=== PATIENT | male | born 1955 | race Caucasian/White ===

== ENCOUNTER 2018-07-18 12:33 | Emergency (ER) | payer MEDICAID ==
[~2018-07-18] VITALS: Ht 167.6 cm; Wt 106.6 kg
[~2018-07-18 12:33] MED LIST: METF-372 PO
[2018-07-18 13:00] VITALS: BP 151/96
[2018-07-18 13:40] LABS: Basophils # (auto) 0 uL; Basophils % (auto) 0.5 % (0.0-2.0); Eosinophils # (auto) 0.2 uL; Hemoglobin 10.8 g/dL (13.5-17.5); Lymphocytes # (auto) 1.6 uL; Neutrophils # (auto) 5.4 uL; Platelet Count (auto) 264 10^3/uL (140-450)
[2018-07-18 13:42] LABS: Eosinophils % (auto) 2.6 % (0.0-7.0); Hematocrit 35.2 % (41.0-53.0); Mean Corpuscular Hemoglobin 20.5 pg (28.0-32.0); Mean Corpuscular Hgb Conc. 30.8 g/dL (32.0-36.0); Mean Corpuscular Volume 66.7 fL (80.0-100.0); Monocytes # (auto) 0.3 uL; Monocytes % (auto) 4.1 % (0.0-12.0); Neutrophils % (auto) 71.8 % (37.0-80.0); Red Blood Cells 5.27 10^6/uL (4.5-5.90); Red Cell Distribution Width 19.1 % (11.8-14.3); White Blood Cell 7.5 10^3/uL (4.4-10.8)
[2018-07-18 13:46] LABS: Albumin 3.8 g/dL (3.4-5.0); Anion Gap 5 (5-15); Blood Urea Nitrogen 18 mg/dL (7-18); Calcium 7.9 mg/dL (8.5-10.1); Carbon Dioxide 27 mmol/L (21-32); Chloride 104 mmol/L (98-107); Glucose 118 mg/dL (74-106); Potassium 3.6 mmol/L (3.5-5.1); Sodium 136 mmol/L (136-145)
[2018-07-18 13:52] LABS: Alanine Aminotransferase 27 U/L (16-61); Alkaline Phosphatase 73 U/L (45-117); Aspartate Aminotransferase 17 U/L (15-37); BUN/Creatinine Ratio 16.1; Bilirubin, Total 0.2 mg/dL (0.2-1.0); GFR African American 86 mL/min; GFR Non-African American 71 mL/min; Total Protein 7.4 g/dL (6.4-8.2)
[2018-07-18] MEDS ORDERED: ASPirin 81 mg TAB PO ONE (16:00)
== END 2018-07-18 18:04 | disposition left against medical advice (07) ==
LOC: ER 12:34
DX: R07.89 Other chest pain (principal); C73 Malignant neoplasm of thyroid gland; D50.9 Iron deficiency anemia, unspecified; E11.9 Type 2 diabetes mellitus without complications; F17.210 Nicotine dependence, cigarettes, uncomplicated
CPT/HCPCS: 36415; 71046; 80053; 83880; 84484; 85025; 93005

== ENCOUNTER 2018-12-16 16:55 | Emergency (ER) | payer MEDICAID ==
[~2018-12-16] VITALS: Ht 167.6 cm; Wt 103.4 kg
[2018-12-16 17:34] VITALS: BP 161/78
== END 2018-12-16 17:54 | disposition home or self-care (01) ==
LOC: ER 16:59
DX: H10.32 Unspecified acute conjunctivitis, left eye (principal); F17.210 Nicotine dependence, cigarettes, uncomplicated; E11.9 Type 2 diabetes mellitus without complications

== ENCOUNTER 2020-07-28 11:00 | Outpatient (CLI) | payer MEDICAID ==
[~2020-07-28] VITALS: Ht 175.3 cm; Wt 105.2 kg
[2020-07-28] MEDS ORDERED: AMLO-489 PO (11:53)
[2020-07-28] MEDS ORDERED: LISI40TA11 PO (11:53)
[2020-07-28] MEDS ORDERED: ASPI-264 PO (11:55)
[2020-07-28] MEDS ORDERED: LEVO200T7 PO (11:55)
[2020-07-28] MEDS ORDERED: CLOP75TA28 PO (11:55)
[2020-07-28] MEDS ORDERED: ASPI300S PR (11:55)
[2020-07-28] MEDS ORDERED: CHOL20007 PO (11:55)
== END 2020-07-28 11:28 | disposition home or self-care (01) ==
LOC: LAB 11:00 → EDSTATUS 08-01 13:49
PROVIDERS: ATTEND Internal Medicine
DX: Z01.818 Encounter for other preprocedural examination (principal); E66.01 Morbid (severe) obesity due to excess calories; Z68.34 Body mass index [BMI] 34.0-34.9, adult; Z20.822 Contact with and (suspected) exposure to COVID-19; Z98.890 Other specified postprocedural states; Z79.899 Other long term (current) drug therapy; Z85.118 Personal history of other malignant neoplasm of bronchus and lung

== ENCOUNTER 2024-03-05 03:43 | Inpatient (IN) | payer OTHER, MEDICAID ==
[~2024-03-05] VITALS: Ht 175.3 cm; Wt 101.0 kg
[2024-03-05] VITALS (14 sets, daily range): BP systolic 106–138; BP diastolic 58–77; PULSE 70–86; RESP 15–18; TEMP 97.6–99.2; O2SAT 94–98
[~2024-03-05 03:43] MED LIST changes: +AMLO1TAB22 PO; +CHOL20007 PO; +CLOP75TA28 PO; +LEVO200T7 PO; +LISI40TA16 PO; -METF-372 PO; +OYST500T28 PO
[2024-03-05] MEDS: MORPHINE SULFATE 4 MG/ML SYR/VIAL IV ONE (04:09)
[2024-03-05] MEDS: ONDANSETRON HCL 4 MG/2 ML VIAL IV ONE (04:09)
[2024-03-05] MEDS: ONDANSETRON HCL 4 MG/2 ML VIAL ONE (04:17)
[2024-03-05] MEDS: MORPHINE SULFATE 4 MG/ML SYR/VIAL ONE (04:18)
[2024-03-05] MEDS: MIDAZOLAM HCL 2MG/2ML 2ml VIAL (1mg/ml) ONE (04:23)
[2024-03-05] MEDS: HEPARIN SODIUM (PORCINE) 5000 UNITS/ML 1ML VIAL ONE (04:23)
[2024-03-05] MEDS: fentaNYL CITRATE 100 MCG/2 ML VL ONE (04:23)
[2024-03-05] MEDS: ANGIOMAX 250 MG VIAL IV ONE (04:23)
[2024-03-05] MEDS: LIDOCAINE 2%HCL (LOCAL ANESTH.) INJ 20ML MDV ONE (04:23)
[2024-03-05] MEDS: VERAPAMIL 2.5MG/ML INJ 2ML VIAL IV ONE (04:23)
[2024-03-05] MEDS: SODIUM CHL 0.9% 50 ML ONE (04:24)
[2024-03-05 04:27] LABS: Basophils # (auto) 0 10 ^3/uL (0-0.2); Eosinophils # (auto) 0 10 ^3/uL (0-0.8); Hemoglobin 10.9 g/dL (13.5-17.5); Mean Corpuscular Hgb Conc. 30.4 g/dL (32.0-36.0); Monocytes # (auto) 0.2 10 ^3/uL (0-1.3); Monocytes % (auto) 1.8 % (0.0-12.0)
[2024-03-05 04:29] LABS: Basophils % (auto) 0.3 % (0.0-2.0); Eosinophils % (auto) 0.1 % (0.0-7.0); Hematocrit 35.9 % (41.0-53.0); Lymphocytes # (auto) 0.6 10 ^3/uL (0.4-5.4); Lymphocytes % (auto) 4.7 % (10.0-50.0); Mean Corpuscular Hemoglobin 20.3 pg (28.0-32.0); Mean Corpuscular Volume 66.9 fL (80.0-100.0); Neutrophils # (auto) 11.3 10 ^3/uL (1.6-8.6); Neutrophils % (auto) 93.1 % (37.0-80.0); Nucleated Red Blood Cells % 0.1 %; Platelet Count (auto) 269 10^3/uL (140-450); Red Blood Cells 5.36 10^6/uL (4.5-5.90); White Blood Cell 12.1 10^3/uL (4.4-10.8)
[2024-03-05 04:32] LABS: Red Cell Distribution Width 20.2 % (11.8-14.3)
[2024-03-05 04:41] LABS: Alanine Aminotransferase 16 U/L (7-40); Albumin 4.6 g/dL (3.2-4.8); Alkaline Phosphatase 79 U/L (46-116); Anion Gap 13 (5-15); Aspartate Aminotransferase 10 U/L (13-40); BUN/Creatinine Ratio 18.7 (10.0-20.0); Blood Urea Nitrogen 14 mg/dL (9-23); Calcium 8.5 mg/dL (8.7-10.4); Carbon Dioxide 18 mmol/L (20-31); Chloride 109 mmol/L (98-107); Glucose 227 mg/dL (74-106); INR 1.04 (0.9-1.15); Magnesium 2.1 mg/dL (1.6-2.6); Partial Thromboplastin Time 23.6 SEC (24.5-34.5); Potassium 3.5 mmol/L (3.5-5.1); Sodium 140 mmol/L (136-145)
[2024-03-05 04:42] LABS: Bilirubin, Total 0.2 mg/dL (0.2-1.0); Total Protein 7.2 g/dL (5.7-8.2)
[2024-03-05 04:46] LABS: Lactic Acid w/Reflex 4.2 mmol/L (0.4-2.0)
[2024-03-05] MEDS: ATROPINE SULF 1 MG/10ml SYR ONE (05:05)
[2024-03-05 05:17] LABS: Anisocytosis Slight; Hypochromia Moderate; Platelet Estimate Adequate
[2024-03-05 05:18] LABS: Ovalocytes FEW
[2024-03-05] MEDS: IODIXANOL 320MG/ML 100ML BTL IV ONE (05:43)
[2024-03-05] MEDS: CLOPIDOGREL BISULFATE 75 MG TAB ONE (05:43)
[2024-03-05] MEDS ORDERED: MORPHINE SULFATE INJ 2 MG/ml SYRG IV PRN (05:45)
[2024-03-05] MEDS ORDERED: NITROGLYCERIN 0.4 MG SL TAB SL PRN (05:45)
[2024-03-05] MEDS: LEVOTHYROXINE SODIUM 25 MCG TAB PO SCH (09:16)
[2024-03-05] MEDS: CLOPIDOGREL BISULFATE 75 MG TAB PO SCH (09:17)
[2024-03-05] MEDS: LISINOPRIL 5 MG TAB PO SCH (09:18)
[2024-03-05] MEDS: ATORVASTATIN 20 MG TAB PO SCH (09:18)
[2024-03-05] MEDS: ASPirin 81 mg TAB PO SCH (09:19)
[2024-03-05] MEDS: CARVEDILOL 3.125 MG TAB PO SCH (09:19)
[2024-03-05] MEDS: MAGNESIUM SULFATE 1GM/100ML 100 ML IV SCH (10:58)
[2024-03-05] MEDS: ONDANSETRON HCL 4 MG/2 ML VIAL IV PRN (14:29)
[2024-03-05 17:32] LABS: Urine Bacteria None Seen /hpf (None Seen)
[2024-03-05 17:47] LABS: Urine Blood Negative /uL (Negative); Urine Clarity Clear (Clear); Urine Color Light-Yellow (Yellow); Urine Mucus FEW (None Seen); Urine Protein, UAD 2+ (Negative); Urine Specific Gravity 1.035 (1.001-1.035); Urine Urobilinogen Normal (Negative); Urine WBC 1 /hpf (0 - 3); Urine pH 5.5 (5.0-9.0)
[2024-03-05] MEDS: ACETAMINOPHEN 325 MG TAB PO PRN (18:41)
[2024-03-05 18:49] LABS: Alanine Aminotransferase 74 U/L (7-40); Albumin 4.1 g/dL (3.2-4.8); Alkaline Phosphatase 74 U/L (46-116); Anion Gap 11 (5-15); Aspartate Aminotransferase 383 U/L (13-40); BUN/Creatinine Ratio 19.2 (10.0-20.0); Bilirubin, Total 0.3 mg/dL (0.2-1.0); Blood Urea Nitrogen 15 mg/dL (9-23); Calcium 8.4 mg/dL (8.7-10.4); Carbon Dioxide 22 mmol/L (20-31); Chloride 107 mmol/L (98-107); Glucose 142 mg/dL (74-106); Magnesium 2.4 mg/dL (1.6-2.6); Phosphorus 4.1 mg/dL (2.4-5.1); Potassium 3.9 mmol/L (3.5-5.1); Sodium 140 mmol/L (136-145); Total Protein 6.3 g/dL (5.7-8.2)
[2024-03-06] VITALS (8 sets, daily range): BP systolic 107–116; BP diastolic 48–69; PULSE 64–78; RESP 16–19; TEMP 97.6–98.3; O2SAT 95–98
[2024-03-06 10:30] LABS: Basophils # (auto) 0 10 ^3/uL (0-0.2); Eosinophils # (auto) 0.1 10 ^3/uL (0-0.8); Eosinophils % (auto) 1.2 % (0.0-7.0); Hemoglobin 11.2 g/dL (13.5-17.5); Lymphocytes # (auto) 1.2 10 ^3/uL (0.4-5.4); Platelet Count (auto) 263 10^3/uL (140-450)
[2024-03-06 10:34] LABS: Basophils % (auto) 0.3 % (0.0-2.0); Hematocrit 35.3 % (41.0-53.0); Lymphocytes % (auto) 12.4 % (10.0-50.0); Mean Corpuscular Hemoglobin 20.7 pg (28.0-32.0); Mean Corpuscular Hgb Conc. 31.7 g/dL (32.0-36.0); Mean Corpuscular Volume 65.3 fL (80.0-100.0); Monocytes # (auto) 0.5 10 ^3/uL (0-1.3); Monocytes % (auto) 5.3 % (0.0-12.0); Neutrophils # (auto) 7.8 10 ^3/uL (1.6-8.6); Neutrophils % (auto) 80.8 % (37.0-80.0); Red Cell Distribution Width 20.1 % (11.8-14.3); White Blood Cell 9.7 10^3/uL (4.4-10.8)
[2024-03-06 10:40] LABS: Chloride 106 mmol/L (98-107); Potassium 3.9 mmol/L (3.5-5.1); Sodium 140 mmol/L (136-145)
[2024-03-06 10:41] LABS: Anion Gap 7 (5-15); Carbon Dioxide 27 mmol/L (20-31)
[2024-03-06 10:42] LABS: Calcium 8.7 mg/dL (8.7-10.4)
[2024-03-06 10:46] LABS: Glucose 155 mg/dL (74-106)
[2024-03-06 10:47] LABS: BUN/Creatinine Ratio 15.7 (10.0-20.0); Blood Urea Nitrogen 13 mg/dL (9-23); Magnesium 2.1 mg/dL (1.6-2.6)
[2024-03-06] MEDS: AMIODARONE HCL 200 MG TAB PO ONE (12:00)
[2024-03-06] MEDS: AMIODARONE HCL 200 MG TAB PO SCH (21:43)
[2024-03-06] MEDS: TEMAZEPAM 15 MG CAP PO ONE (22:09)
[2024-03-07 08:00] VITALS: PULSE 64; PULSE 67; RESP 20; O2SAT 95
[2024-03-07 09:32] VITALS: BP 135/76; PULSE 67; RESP 20; TEMP 97.6; O2SAT 95
[2024-03-07 10:37] LABS: Alanine Aminotransferase 41 U/L (7-40); Albumin 3.8 g/dL (3.2-4.8); Alkaline Phosphatase 68 U/L (46-116); Anion Gap 5 (5-15); Aspartate Aminotransferase 66 U/L (13-40); BUN/Creatinine Ratio 17.9 (10.0-20.0); Blood Urea Nitrogen 15 mg/dL (9-23); Calcium 8.4 mg/dL (8.7-10.4); Carbon Dioxide 28 mmol/L (20-31); Chloride 107 mmol/L (98-107); Glucose 198 mg/dL (74-106); Potassium 3.8 mmol/L (3.5-5.1); Sodium 140 mmol/L (136-145)
[2024-03-07 10:39] LABS: Bilirubin, Total 0.3 mg/dL (0.2-1.0); Total Protein 5.9 g/dL (5.7-8.2)
[2024-03-07] MEDS ORDERED: ATOR-507 PO (13:13)
[2024-03-07] MEDS ORDERED: CARV-214 PO (13:13)
[2024-03-07] MEDS ORDERED: NITR0.4S29 SL (13:13)
[2024-03-07] MEDS ORDERED: ASPI-325 PO (13:13)
[2024-03-07] MEDS ORDERED: AMIO200T13 PO (13:13)
[2024-03-07] MEDS ORDERED: CLOP75TA70 PO (13:13)
[2024-03-07] MEDS ORDERED: LISI-275 PO (13:13)
[2024-03-07 13:29] VITALS: BP 127/64; PULSE 71; RESP 20; TEMP 97.9; O2SAT 98
[2024-03-07 14:35] VITALS: BP 127/64; PULSE 71; RESP 20; TEMP 97.9; O2SAT 98
== END 2024-03-07 16:03 | disposition home or self-care (01) | DRG 321 ==
LOC: ER 03:43 → EDBD 03:43 → TELE 05:47 → TELE-WESTW 07:01
PROVIDERS: ADMIT Student in an Organized Health Care Education/Training Program; ATTEND Student in an Organized Health Care Education/Training Program
PROC: 0270346 Dilation of Coronary Artery, One Artery, Bifurcation, with Drug-eluting Intraluminal Device, Percutaneous Approach (ICD-10-PCS; principal; 2024-03-05)
PROC: 02703ZZ Dilation of Coronary Artery, One Artery, Percutaneous Approach (ICD-10-PCS; 2024-03-05)
PROC: 4A023N7 Measurement of Cardiac Sampling and Pressure, Left Heart, Percutaneous Approach (ICD-10-PCS; 2024-03-05)
PROC: B211YZZ Fluoroscopy of Multiple Coronary Arteries using Other Contrast (ICD-10-PCS; 2024-03-05)
PROC: B215YZZ Fluoroscopy of Left Heart using Other Contrast (ICD-10-PCS; 2024-03-05)
PROC: 5A09357 Assistance with Respiratory Ventilation, Less than 24 Consecutive Hours, Continuous Positive Airway Pressure (ICD-10-PCS; 2024-03-05)
DX: I21.19 ST elevation (STEMI) myocardial infarction involving other coronary artery of inferior wall (principal); J81.0 Acute pulmonary edema; E87.20 Acidosis, unspecified; I47.20 Ventricular tachycardia, unspecified; D72.829 Elevated white blood cell count, unspecified; I25.10 Atherosclerotic heart disease of native coronary artery without angina pectoris; I10 Essential (primary) hypertension; F17.210 Nicotine dependence, cigarettes, uncomplicated; D50.9 Iron deficiency anemia, unspecified; R74.01 Elevation of levels of liver transaminase levels; E03.9 Hypothyroidism, unspecified; E78.5 Hyperlipidemia, unspecified; E11.51 Type 2 diabetes mellitus with diabetic peripheral angiopathy without gangrene; E66.01 Morbid (severe) obesity due to excess calories; Z95.5 Presence of coronary angioplasty implant and graft; Z85.850 Personal history of malignant neoplasm of thyroid; Z83.3 Family history of diabetes mellitus; Z82.49 Family history of ischemic heart disease and other diseases of the circulatory system; Z82.3 Family history of stroke; Z68.32 Body mass index [BMI] 32.0-32.9, adult
CPT/HCPCS: 36415; 71045; 80048; 80053; 81001; 83605; 83735; 83880; 84100; 84443; 84484; 85025; 85379; 85610; 85730; 86850; 86900; 86901; 87081; 92921; 92941; 93005; 93306; 93458; 94660; 99152; 99291; C1887; G0378; J2250; J2405; Q9967

== ENCOUNTER 2024-03-20 03:53 | Emergency (ER) | payer OTHER, MEDICAID ==
[~2024-03-20] VITALS: Ht 162.6 cm; Wt 99.5 kg
[~2024-03-20 03:53] MED LIST changes: +AMIO200T13 PO; -AMLO1TAB22 PO; +ASPI-325 PO; +ATOR-507 PO; +CARV-214 PO; +CLOP75TA70 PO; +LISI-275 PO; -LISI40TA16 PO; +NITR0.4S29 SL
[2024-03-20 04:24] LABS: Basophils # (auto) 0 10 ^3/uL (0-0.2); Basophils % (auto) 0.4 % (0.0-2.0); Eosinophils # (auto) 0.2 10 ^3/uL (0-0.8); Eosinophils % (auto) 1.9 % (0.0-7.0); Hematocrit 33.2 % (41.0-53.0); Hemoglobin 10.4 g/dL (13.5-17.5); Lymphocytes # (auto) 1.6 10 ^3/uL (0.4-5.4); Lymphocytes % (auto) 17.8 % (10.0-50.0); Mean Corpuscular Hemoglobin 20.4 pg (28.0-32.0); Mean Corpuscular Hgb Conc. 31.5 g/dL (32.0-36.0); Mean Corpuscular Volume 64.9 fL (80.0-100.0); Monocytes # (auto) 0.8 10 ^3/uL (0-1.3); Monocytes % (auto) 9.5 % (0.0-12.0); Neutrophils # (auto) 6.2 10 ^3/uL (1.6-8.6); Neutrophils % (auto) 70.4 % (37.0-80.0); Platelet Count (auto) 285 10^3/uL (140-450); Red Blood Cells 5.12 10^6/uL (4.5-5.90); White Blood Cell 8.8 10^3/uL (4.4-10.8)
[2024-03-20 04:25] LABS: Red Cell Distribution Width 20.3 % (11.8-14.3)
[2024-03-20 04:31] LABS: Chloride 108 mmol/L (98-107); Sodium 140 mmol/L (136-145)
[2024-03-20 04:32] LABS: Anion Gap 7 (5-15); Calcium 8.5 mg/dL (8.7-10.4); Carbon Dioxide 25 mmol/L (20-31)
[2024-03-20 04:37] LABS: BUN/Creatinine Ratio 15.5 (10.0-20.0); Blood Urea Nitrogen 13 mg/dL (9-23); Glucose 116 mg/dL (74-106)
[2024-03-20 05:42] LABS: Urine Bacteria None Seen /hpf (None Seen)
[2024-03-20 06:00] LABS: Urine Blood Negative /uL (Negative); Urine Clarity Clear (Clear); Urine Color Light-Yellow (Yellow); Urine Protein, UAD 1+ (Negative); Urine Specific Gravity 1.017 (1.001-1.035); Urine Urobilinogen Normal (Negative); Urine WBC 1 /hpf (0 - 3)
[2024-03-20] MEDS: FUROSEMIDE 20 MG/2 ML VIAL ONE (06:48)
[2024-03-20] MEDS: FUROSEMIDE 20 MG/2 ML VIAL IV ONE (06:49)
[2024-03-20 07:30] VITALS: PULSE 51; RESP 15; O2SAT 97
[2024-03-20 09:38] VITALS: BP 150/81; PULSE 49; RESP 16; TEMP 98.4; O2SAT 98
== END 2024-03-20 06:26 | disposition short-term general hospital (02) ==
LOC: ER 03:53
DX: I11.0 Hypertensive heart disease with heart failure (principal); I50.9 Heart failure, unspecified; E11.9 Type 2 diabetes mellitus without complications; E78.5 Hyperlipidemia, unspecified; F17.210 Nicotine dependence, cigarettes, uncomplicated; Z79.82 Long term (current) use of aspirin; Z79.899 Other long term (current) drug therapy; Z85.850 Personal history of malignant neoplasm of thyroid; Z95.5 Presence of coronary angioplasty implant and graft
CPT/HCPCS: 36415; 71046; 80048; 81001; 83880; 84484; 85025; 93005; 96374; 99285; J1940

== ENCOUNTER 2024-06-30 06:54 | Inpatient (IN) | payer OTHER, MEDICAID ==
[~2024-06-30] VITALS: Ht 177.8 cm; Wt 102.8 kg
[2024-06-30] VITALS (8 sets, daily range): BP systolic 114–119; BP diastolic 60–63; PULSE 69–92; RESP 18–22; TEMP 98.6–99; O2SAT 92–100
--- NOTE | 2024-06-30 07:10 | ECG ---
[facility] Test Date: 2024-06-30 Test Time: 07:02:35 Pat Name: TAD AARON Department: ED Room: Gender: M Heat Treatment Technician: ANTHONY : 1955 Requested By: EMERGENCY EMERGENCY Order Number: [id number] Reading MD: Lester Tavera Measurements Intervals [place] Rate: 94 P: 62 DE: 176 QRS: 57 QRSD: 98 T: -66 QT: 380 QTc: 476 Interpretive Statements Sinus rhythm Inferior infarct, age indeterminate Lateral leads are also involved Baseline wander in lead(s) III,aVF,V1,V2,V3 Electronically Signed On 06-30-2024 8:57:18 PST by Lester Tavera Please click the below link to view image of tracing.
--- NOTE | 2024-06-30 07:31 | ED.PDOC ---
SOB-HPI HPI Comments 68Y M with PMHx DM, HTN, HLD, AND CAD presents to ED via EMS for chief complaint SOB x2days with fever, chills, and chest pain. Pt states chest pain is substernal and non-radiating. Pt denies h/o smoking. No other symptoms reported. Chief Complaint: Shortness of Breath Time Seen by MD: 07:19 Primary Care Provider: ISIDRO Reyes notes: Nurses Notes, Ramp Lead Notes, Medications, Allergies Information Source: Patient, Emergency Med Personnel Mode of Arrival: EMS Brought in by: EMS Severity: Mild Timing: Days Duration: Since onset Context: At Rest PE Risk Factors: None History of: None Prehospital treatment: 12 Lead EKG Modifying Factors: Nothing Associated Signs and Symptoms: Fever, Chest Pain, Other Quality: Other Radiation: No Radiation Location: Substernal Past Medical History PAST MEDICAL HISTORY: CAD, Cancer, DM, High Lipids, HTN, GA Surgical History: PTCA Family History Family History: Reviewed,noncontributory to illness Social History Smoker: Cigarettes, Less Than 1 Pack/Day Alcohol: Occasionally Drugs: Denies Drug Use Lives In: Home Constitutional: reports: chills, fever; denies: diaphoresis, fatigue, malaise, sweats, weakness, others EENTM: denies: blurred vision, double vision, ear bleeding, ear discharge, ear drainage, ear pain, ear ringing, eye pain, eye redness, hearing loss, mouth pain, mouth swelling, nasal discharge, nose bleeding, nose congestion, nose pain, photophobia, tearing, throat pain, throat swelling, voice changes, others Respiratory: reports: shortness of breath; denies: cough, hemoptysis, orthopnea, SOB at rest, SOB with excertion, stridor, wheezing, others Cardiovascular: reports: chest pain; denies: dizzy spells, diaphoresis, Dyspnea on exertion, edema, irregular heart beat, left arm pain, lightheadedness, palpitations, PND, syncope, others Gastrointestinal: denies: abdomen distended, abdominal pain, blood streaked bowels, constipated, diarrhea, dysphagia, difficulty swallowing, hematemesis, melena, nausea, poor appetite, poor fluid intake, rectal bleeding, rectal pain, vomiting, others Genitourinary: denies: burning, dysuria, flank pain, frequency, hematuria, incontinence, penile discharge, penile sore, pain, testicle pain, testicle swelling, urgency, others Neurological: denies: dizziness, fainting, headache, left sided numbness, left sided weakness, numbness, paresthesia, pre-existing deficit, right sided numbness, right sided weakness, seizure, speech problems, tingling, tremors, weakness, others Musculoskeletal: denies: back pain, gout, joint pain, joint swelling, muscle pain, muscle stiffness, neck pain, others Integumetry: denies: bruises, change in color, change in hair/nails, dryness, laceration, lesions, lumps, rash, wounds, others Allergic/Immunocompromised: denies: Difficulty Healing, Frequent Infections, Hives, Itching, others Hematologic/Lymphatic: denies: anemia, blood clots, easy bleeding, easy bruising, swollen glands, others Endocrine: denies: excessive hunger, excessive sweating, excessive thirst, excessive urination, flushing, intolerance to cold, intolerance to heat, unexplained weight gain, unexplained weight loss, others Psychiatric: denies: anxiety, bipolar disorder, depression, hopeless, panic d isorder, schizophrenia, sleepless, suicidal, others All Other Systems: Reviewed and Negative Physical Exam General Appearance: Moderate Distress, Normal HEENT: Normal ENT Inspection, Pharynx Normal, TMs Normal Neck: Full Range of Motion, Non-Tender, Normal, Normal Inspection Respiratory: Chest Non-Tender, Lungs Clear, No Accessory Muscle Use, No Respiratory Distress, Normal Breath Sounds Cardiovascular: No Edema, No JVD, No Murmur, No Gallop, Normal Peripheral Pulses, Regular Rate/Rhythm Breast Exam: Deferred Gastrointestinal: No Organomegaly, Non Tender, No Pulsatile Mass, Normal Bowel Sounds, Soft Genitalia: Deferred Pelvic: Deferred Rectal: Deferred Extremities: No calf tenderness, Normal capillary refill, Normal inspection, Normal range of motion, Non-tender, No pedal edema Musculoskeletal : Apperance: Normal Neurologic: Alert, box repairer II-XII nml as Tested, No Motor Deficits, Normal Affect, Normal Mood, No Sensory Deficits Cerebellar Function: NOT DONE Reflexes: NOT DONE Skin: Dry, Normal Color, Warm Peripheral Pulses: 3+ Radial (R), 3+ Radial (L) Lymphatic: No Adenopathy Was a procedure done? Was a procedure done?: No Differential Dx Differential Diagnosis: Anxiety, Asthma, Bronchitis, CHF, COPD, URI X-Ray, Labs, Meds, VS Vital Signs Date Time Temp Pulse Resp B/P (MAP) Pulse Ox O2 Delivery O2 Flow Rate FiO2 06/30/24 08:38 99.4 06/30/24 07:45 92 22 96 Nasal Cannula* 4 36 06/30/24 07:40 92 22 96 Room Air 06/30/24 07:40 99.8 92 22 154/73 (100) 96 99.8 06/30/24 07:38 99.8 06/30/24 07:15 18 94 Nasal Cannula* 4 36 06/30/24 07:15 101.1 95 18 165/77 (106) 94 06/30/24 07:02 94 Lab Test 06/30/24 07:41 Range/Units White Blood Count Pending Red Blood Count Pending Hemoglobin Pending Hematocrit Pending Mean Corpuscular Volume Pending Mean Corpuscular Hemoglobin Pending Mean Corpuscular Hemoglobin Concent Pending Red Cell Distribution Width Pending Platelet Count Pending Mean Platelet Volume Pending Neutrophils (%) (Auto) Pending Lymphocytes (%) (Auto) Pending Monocytes (%) (Auto) Pending Basophils (%) (Auto) Pending Neutrophils # (Auto) Pending Lymphocytes # (Auto) Pending Monocytes # (Auto) Pending Sodium Level 139 136-145 mmol/L Potassium Level 3.2 L 3.5-5.1 mmol/L Chloride Level 105 98-107 mmol/L Carbon Dioxide Level 23 20-31 mmol/L Anion Gap 11 5-15 Blood Urea Nitrogen 17 9-23 mg/dL Creatinine 0.87 0.700-1.30 mg/dL Glomerular Filtration Rate Calc 95 >90 mL/min BUN/Creatinine Ratio 19.5 10.0-20.0 Serum Glucose 150 H 74-106 mg/dL Calcium Level 8.7 8.7-10.4 mg/dL Troponin I High Sensitivity 21 </=54 ng/L Current Medications Medications (Trade) Dose Ordered Sig/Breonna Route Start Time Stop Time Status Last Admin Acetaminophen (Tylenol Tablet) 650 mg ONCE ONCE PO 06/30/24 07:30 06/30/24 07:31 DC 06/30/24 07:[address] [address] Ph: [phone] DIAGNOSTIC IMAGING Diagnostic Imaging Report : [id number] Signed PATIENT: TAD AARON ACCT: [id number] UNIT: [id number] : 1955 LOC: ER ROOM / BED: / AGE / SEX: 68 / M ADM STATUS: REG ER SERVICE 2 ORDERING PHYSICIAN: MOLLY CONTRERAS MD PROCEDURE(s): CXRP - CHEST PORTABLE REASON: sob ORDER NUMBER(s): [id number], ACCESSION NUMBER(s): [id number] Procedure: XY CHEST PORTABLE 06/30/2024 07:50 AM Indication: sob Comparison: XY CHEST PORTABLE on DOS: 03/05/24 TECHNIQUE: XY CHEST PORTABLE FINDINGS: Medical devices: None. Cardiomediastinal: The heart is normal in size. Pulmonary vasculature is within normal limits. Atherosclerotic calcification of the aortic arch noted. Lungs: Reticular opacities are seen in the bilateral mid and lower lung zones. Approximately 5.5 cm centrally lucent oval peripherally dense lesion noted in the left midlung zone. The costophrenic angles are clear. No pneumothorax. Bones/soft tissues: No acute abnormality is noted. IMPRESSION: 1. Bilateral pulmonary opacities likely pneumonia with concern for cavitating pneumonia in the left midlung zone. Recommend further evaluation with chest CT scan with IV contrast. ATED BY: YULIYA MICHELLE MD DICTATED DATE/TIME: 06/30/24804 SIGNED BY: YULIYA MICHELLE MD SIGNED DATE/TIME: 06/30/24804 CC: Patient alert. Complaining of chest pain. Shortness a breath pain Placed on oxygen. Possible pneumonia. Chest x-ray does confirm pneumonia. Establish intravenous access. Was given azithromycin. EKG reviewed does show old changes. History of coronary artery disease. Explained to the patient. Continue cardiac monitoring. [facility] approved inpatient admission [id number]. Time of 1ST Reevaluation: 07:49 Reevaluation 1ST: Unchanged Patient Education/Counseling: Diagnosis, Treatment Family Education/Counseling: No Family Present Departure 1 Departure Time of Disposition: 09:05 Impression: Primary Impression: Acute respiratory distress Additional Impressions: Pneumonia Qualified Codes: J18.9 - Pneumonia, unspecified organism Chest pain of unknown etiology Disposition: ADMITTED INPATIENT Admit to: Med Surg Condition: Guarded Critical Care Note Critical Care Time?: Yes (45 min-critical care time only) Stability Stability form required: No Heart Score Heart Score: Heart Score Response (Comments) Value History Slightly Suspicious 0 EKG Normal 0 Age >65 2 Risk Factors >3 or Hx ASHD 2 Troponin Normal limit 0 Total 4 I personally scribed for MOLLY CONTRERAS MD ([email or web address]) on 06/30/24 at 07:31. Electronically submitted by Lucretia Griffin ([facility]). I personally scribed for MOLLY CONTRERAS MD ([email or web address]) on 06/30/24 at 08:13. Electronically submitted by Lucretia Griffin ([facility]). MOLLY CONTRERAS MD Jun 30, 2024 07:31
[2024-06-30] MEDS: ACETAMINOPHEN 325 MG TAB PO ONE (07:38)
--- NOTE | 2024-06-30 08:07 | DVH ---
Procedure: XY CHEST PORTABLE 06/30/2024 07:50 AM Indication: sob Comparison: XY CHEST PORTABLE on DOS: 03/05/24 TECHNIQUE: XY CHEST PORTABLE FINDINGS: Medical devices: None. Cardiomediastinal: The heart is normal in size. Pulmonary vasculature is within normal limits. Athero sclerotic calcification of the aortic arch noted. Lungs: Reticular opacities are seen in the bilateral mid and lower lung zones. Approximately 5.5 cm c entrally lucent oval peripherally dense lesion noted in the left midlung zone. The costophrenic angl es are clear. No pneumothorax. Bones/soft tissues: No acute abnormality is noted. IMPRESSION: 1. Bilateral pulmonary opacities likely pneumonia with concern for cavitating pneumonia in the left m idlung zone. Recommend further evaluation with chest CT scan with IV contrast.
[2024-06-30 09:02] LABS: Chloride 105 mmol/L (98-107); Sodium 139 mmol/L (136-145)
[2024-06-30 09:03] LABS: Anion Gap 11 (5-15); Carbon Dioxide 23 mmol/L (20-31)
[2024-06-30 09:08] LABS: BUN/Creatinine Ratio 19.5 (10.0-20.0); Blood Urea Nitrogen 17 mg/dL (9-23)
[2024-06-30 09:19] LABS: Calcium 8.7 mg/dL (8.7-10.4); Glucose 150 mg/dL (74-106); Potassium 3.2 mmol/L (3.5-5.1)
[2024-06-30 09:36] LABS: Urine Bacteria None Seen /hpf (None Seen)
[2024-06-30] MEDS: NITROGLYCERIN 0.4 MG SL TAB SL ONE (09:45)
[2024-06-30] MEDS: AZITHROMYCIN 500MG/ 250ML 250 ML IV ONE (09:45)
[2024-06-30 09:57] LABS: Urine Blood Negative /uL (Negative); Urine Clarity Clear (Clear); Urine Color Yellow (Yellow); Urine Hyaline Cast FEW /lpf (0 - 2); Urine Mucus FEW (None Seen); Urine Protein, UAD 2+ (Negative); Urine Specific Gravity 1.025 (1.001-1.035); Urine Squamous Epithelial Cell FEW /hpf (<5); Urine Urobilinogen Normal (Negative); Urine WBC 8 /HPF (0-3)
[2024-06-30 10:02] LABS: Basophils # (auto) 0.1 10 ^3/uL (0-0.2); Eosinophils # (auto) 0 10 ^3/uL (0-0.8); Monocytes # (auto) 0.8 10 ^3/uL (0-1.3)
[2024-06-30 10:04] LABS: Basophils % (auto) 0.4 % (0.0-2.0); Eosinophils % (auto) 0.1 % (0.0-7.0); Hematocrit 37.3 % (41.0-53.0); Hemoglobin 11.2 g/dL (13.5-17.5); Lymphocytes # (auto) 0.4 10 ^3/uL (0.4-5.4); Lymphocytes % (auto) 2.4 % (10.0-50.0); Mean Corpuscular Hemoglobin 18.7 pg (28.0-32.0); Mean Corpuscular Volume 62.4 fL (80.0-100.0); Monocytes % (auto) 4.6 % (0.0-12.0); Neutrophils # (auto) 15.9 10 ^3/uL (1.6-8.6); Neutrophils % (auto) 92.5 % (37.0-80.0); Platelet Count (auto) 289 10^3/uL (140-450); Red Blood Cells 5.98 10^6/uL (4.5-5.90); Red Cell Distribution Width 22.1 % (11.8-14.3); White Blood Cell 17.2 10^3/uL (4.4-10.8)
[2024-06-30] MEDS: PIPERACILLIN-TAZOB 3.375GM 100 ML IV ONE (10:11)
[2024-06-30 10:18] LABS: Anisocytosis Slight; Hypochromia Moderate; Ovalocytes MODERATE
[2024-06-30 10:19] LABS: Large Platelets FEW
[2024-06-30 10:20] LABS: Platelet Estimate Adequa
--- NOTE | 2024-06-30 11:10 | DVHHP2 ---
History of Present Illness Reason for Visit: SOB History of Present Illness Raudel Glynn is a 68-year-old male with past medical history of hypertension, hyperlipidemia, diabetes, COPD, CAD with PTCA to the RCA on 03/05/24 at [facility] who presents to the ED for shortness of breath, fever, chills, and chest pain x2 days. Patient reports that he has at home cleaning his house when he suddenly developed shortness of breath. He also reports that he is dependent on 4 L nasal cannula oxygen continuously. Patient also reports of bilateral ear pain c/o 12/09 constant pressure-like. Patient denies any recent sick contacts, denies abdominal pain, nausea, vomiting, diarrhea, weakness, weakness, and dizziness. Cardiovascular: CAD, HTN, hyperipidemia Pulmonary: COPD Endocrine: Diabetes Past Surgical History: Other (PTCA) Family History: None Smoke: No ALCOHOL: occassional Drugs: None Lives: with Family Domestic Violence: Neg Review of Systems Constitutional: Yes: Fever, Chills; No: Sweats, Weakness, Malaise, Other Eyes: No: Pain, Vision change, Conjunctivae inflammation, Eyelid inflammation, Other, Redness ENT: Ear pain; No: Ear discharge, Nose pain, Nose discharge, Nose congestion, Mouth pain, Mouth swelling, Throat pain, Throat swelling, Other Respiratory: Shortness of breath; No: Cough, Dry, SOB with excertion, Wheezing, Hemoptysis, Pleuritic Pain, Sputum, Wheezing, Other Cardiovascular: Chest Pain; No: Palpitations, Orthopnea, Paroxysmal Noc. Dyspnea, Edema, Lt Headedness, Other Gastrointestinal: No: Nausea, Vomiting, Abdominal Pain, Diarrhea, Constipation, Melena, Hematochezia, Other Genitourinary: No Dysuria, No Frequency, No Incontinence, No Hematuria, No Retention, No Other Musculoskeletal: No: other, neck pain, shoulder pain, arm pain, back pain, hand pain, leg pain, foot pain Skin: No: Rash, Lesions, Jaundice, Bruising, Other Neurological: No: Weakness, Numbness, Incoordination, Change in speech, Confusion, Seizures, Other Allergies: Coded Allergies: No Known Drug Allergy (Verified Allergy, Unknown, 09/21/20) Medications Current Medications Medications Dose Ordered Sig/Breonna Route Start Time Stop Time Status Last Admin Dose Admin Piperacillin Sod/ Tazobactam Sod 100 ml @ 25 mls/hr Q8HR IV 06/30/24 14:00 UNV Azithromycin 250 ml @ 125 mls/hr DAILY IV 07/01/24 10:00 UNV Diagnostic Test (Pha) 1 strip ACHS 06/30/24 11:30 UNV Insulin Human Regular ACHS SC 06/30/24 11:30 UNV Dextrose 50 ml UD PRN IV 06/30/24 11:15 UNV Morphine Sulfate 2 mg Q30MP PRN IV 06/30/24 11:15 UNV Exam Vital Signs Vital Signs Date Time Temp Pulse Resp B/P (MAP) Pulse Ox O2 Delivery O2 Flow Rate FiO2 06/30/24 09:36 99.0 74 18 114/60 (78) 99 99.0 06/30/24 07:45 Nasal Cannula* 4 36 General Appearance: Alert, Oriented X3, Cooperative, mild distress HEENT: Atraumatic, PERRLA, EOMI, Mucous membr. moist/pink Respiratory: Normal air movement Cardiovascular: Regular rate, Normal S1, Normal S2, No murmurs Abdominal: Normal bowel sounds, Soft, No tenderness, No hepatospenomegaly, No masses Extremities: No clubbing, No cyanosis, No edema, Normal pulses, No tenderness/swelling Skin: No rashes, No breakdown, No significant lesion Neuro: Normal gait, Normal speech, Strength at 5/5 X4 ext, Normal tone, Sensation intact Psych/Mental Status: Mental status NL, Mood NL Labs/Xrays Labs Test 06/30/24 09:12 06/30/24 08:32 06/30/24 07:41 Range/Units Troponin I High Sensitivity 18 </=54 ng/L Urine Color Yellow Yellow Urine Clarity Clear Clear Urine pH 6.0 5.0-9.0 Urine Specific [place] 1.025 1.001-1.035 Urine Protein 2+ H Negative Urine Ketones 1+ H Negative Urine Blood Negative Negative /uL Urine Nitrite Negative Negative Urine Bilirubin Negative Negative Urine Urobilinogen Normal Negative mg/dL Urine Leukocyte Esterase Trace Negative /uL Urine RBC <1 0 - 3 /hpf Urine Microscopic WBC 8 H 0-3 /HPF Urine Squamous Epithelial Cells Few <5 /hpf Urine Bacteria None seen None Seen /hpf Urine Hyaline Casts Few 0 - 2 /lpf Urine Mucus Few None Seen Urine Glucose Trace Normal mg/dL White Blood Count 17.2 H 4.4-10.8 10^3/uL Red Blood Count 5.98 H 4.5-5.90 10^6/uL Hemoglobin 11.2 L 13.5-17.5 g/dL Hematocrit 37.3 L 41.0-53.0 % Mean Corpuscular Volume 62.4 L 80.0-100.0 fL Mean Corpuscular Hemoglobin 18.7 L 28.0-32.0 pg Mean Corpuscular Hemoglobin Concent 30.0 L 32.0-36.0 g/dL Red Cell Distribution Width 22.1 H 11.8-14.3 % Platelet Count 289 140-450 10^3/uL Mean Platelet Volume 8.8 6.9-10.8 fL Neutrophils (%) (Auto) 92.5 H 37.0-80.0 % Lymphocytes (%) (Auto) 2.4 L 10.0-50.0 % Monocytes (%) (Auto) 4.6 0.0-12.0 % Eosinophils (%) (Auto) 0.1 0.0-7.0 % Basophils (%) (Auto) 0.4 0.0-2.0 % Neutrophils # (Auto) 15.9 H 1.6-8.6 10 ^3/uL Lymphocytes # (Auto) 0.4 0.4-5.4 10 ^3/uL Monocytes # (Auto) 0.8 0-1.3 10 ^3/uL Eosinophils # (Auto) 0 0-0.8 10 ^3/uL Basophils # (Auto) 0.1 0-0.2 10 ^3/uL Nucleated Red Blood Cells 0.0 % Platelet Estimate [place] Large Platelets Few Hypochromasia (manual) Moderate Anisocytosis (manual) Slight Microcytosis Moderate Ovalocytes Moderate Sodium Level 139 136-145 mmol/L Potassium Level 3.2 L 3.5-5.1 mmol/L Chloride Level 105 98-107 mmol/L Carbon Dioxide Level 23 20-31 mmol/L Anion Gap 11 5-15 Blood Urea Nitrogen 17 9-23 mg/dL Creatinine 0.87 0.700-1.30 mg/dL Glomerular Filtration Rate Calc 95 >90 mL/min BUN/Creatinine Ratio 19.5 10.0-20.0 Serum Glucose 150 H 74-106 mg/dL Calcium Level 8.7 8.7-10.4 mg/dL Procedure: XY CHEST PORTABLE 06/30/2024 07:50 AM Indication: sob Comparison: XY CHEST PORTABLE on DOS: 03/05/24 TECHNIQUE: XY CHEST PORTABLE FINDINGS: Medical devices: None. Cardiomediastinal: The heart is normal in size. Pulmonary vasculature is within normal limits. Atherosclerotic calcification of the aortic arch noted. Lungs: Reticular opacities are seen in the bilateral mid and lower lung zones. Approximately 5.5 cm centrally lucent oval peripherally dense lesion noted in the left midlung zone. The costophrenic angles are clear. No pneumothorax. Bones/soft tissues: No acute abnormality is noted. IMPRESSION: 1. Bilateral pulmonary opacities likely pneumonia with concern for cavitating pneumonia in the left midlung zone. Recommend further evaluation with chest CT scan with IV contrast. CTA CHEST INDICATION: r/o cavitary lesion TECHNIQUE: Multidetector CTA of the chest was performed of the chest with 100 cc of intravenous contrast. PULMONARY ANGIOGRAPHY PROTOCOL was utilized using a bolus-tracking technique centered on the main pulmonary artery. Axial, coronal and sagittal multiplanar and MIP reformats were performed. Radiation Dose Information: CT Dose: CTDI volume is 22 mGy. Dose-length product is 817 mGy*cm The dose indicators for CT are the volume Computed Tomography (CT) Dose Index (CTDIvol) and the Dose Length Product (DLP), and are measured in units of mGy and mGy-cm, respectively. These indicators are not patient dose, but values generated from the CT scanner acquisition factors. The report includes radiation exposure data for exposures received during this examination. Comparison: None Findings: Pulmonary artery: There is no evidence of a pulmonary arterial filling defect to suggest pulmonary embolism. Lungs/Pleura: There are multi focal patchy opacities in the right upper and bilateral lower lobes consistent with airspace disease. There are small patchy opacities with tree-in-bud nodularity in the right upper lobe. The findings likely relate to multifocal infectious process. There is no evidence of a cavitary lesion. There is no significant pleural effusion. There is no evidence of pneumothorax. Heart/Vascular Structures: Normal heart size. The thoracic aorta demonstrates normal caliber. There is no evidence of pericardial effusion. Lymph Nodes: There is no evidence of thoracic lymphadenopathy. Musculoskeletal: No acute osseous abnormality. Upper abdomen: There is a nonspecific 4.4 cm retrocardiac cystic structure along the right lateral margins of the lower esophagus. The visualized intra- abdominal structures appear within normal limits. IMPRESSION: 1. There is no evidence of a pulmonary arterial filling defect to suggest pulmonary embolism. 2. Multifocal patchy opacities in the bilateral lower and left upper lobes and to a lesser degree in the right upper lobe. Findings likely relate to multifocal infectious process. Clinical correlation is recommended. There is no significant pleural effusion. 3. Nonspecific 4.4 cm retrocardiac cystic structure along the right lateral margins of the lower esophagus. Assessment/Plan Assessment/Plan Assessment/Plan: Acute on chronic respiratory failure Leukocytosis likely due to UTI Lactic acidosis likely due to sepsis Oxygen dependent on 4 L nasal cannula at home Ketonuria Proteinuria Labs UA Nitro given in ED Aspirin given ED IV antibiotics-Zosyn + azithromycin Pain management Antipyretics RBC morphology Troponin negative x2 Chest x-ray EKG Mag level Magnesium IV CT chest Blood cultures IV fluids Respiratory treatments A.m. labs Supportive oxygen Cardiology consult Bilateral pulmonary opacities likely pneumonia with concern for cavitating pneumonia in the left midlung zone. CT angio chest Hypokalemia replete lytes Diabetes type 2 uncontrolled Hemoglobin A1c ISS and Accu-Cheks History of CAD with PTCA on the RCA on 03/05/2024 [facility] Monitor Chronic hypertension Continue home medications Chronic hyperlipidemia Continue home medications Chronic COPD P.r.n. 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 Procedure Category Date Status Time Ct Angio Chest CT 06/30/24 Logged Contrast 10:37 Lactic Acid W/ Reflex LAB 06/30/24 Logged Order 10:40 Blood Culture ALESSIA 06/30/24 Logged 10:40 Urine Bacterial ALESSIA 06/30/24 Logged Culture 10:41 Potassium Er Tablet PHA 06/30/24 Transmitted (Klor-Con Tablet) 11:15 Magnesium LAB 06/30/24 Transmitted 11:02 Magnesium Mendez PHA 06/30/24 Transmitted 11:15 Zosyn Extended PHA 06/30/24 Transmitted Infusion 14:00 Azithromycin 500mg/ PHA 07/01/24 Transmitted 250ml (Zithromax 50 10:00 Hemoglobin A1c LAB 06/30/24 Transmitted 11:02 Glucose Blood PHA 06/30/24 Transmitted (Accu-Chek Comfort 11:30 Mild Sliding Scale PHA 06/30/24 Transmitted 11:30 Dextrose 50% Syringe PHA 06/30/24 Transmitted 11:15 Admit ADMIT 06/30/24 Transmitted 11:02 Code Status CODE 06/30/24 Transmitted 11:02 Vital Signs KRYSTA 06/30/24 In Process 11:02 Central Sterilization Technician KRYSTA 06/30/24 In Process 11:02 Cardiac DIET 06/30/24 Transmitted Diet-2gna,Lofat,Lochol Lunch Morphine Sulfate PHA 06/30/24 Transmitted Injection 11:15 Acetaminophen Tablet PHA 06/30/24 Transmitted (Tylenol Tablet) 11:15 Complete Blood Count LAB 07/01/24 Verified 04:00 Comprehensive LAB 07/01/24 Verified Metabolic Panel 04:00 Ondansetron Hcl PHA 06/30/24 Transmitted (Zofran) 11:15 Electrocardigram EKG 07/01/24 Logged 04:00 Troponin-I Hs LAB 06/30/24 Transmitted 11:02 Cardiac KRYSTA 06/30/24 In Process Rehabilitation - Outpa Nitroglycerin PHA 06/30/24 Transmitted Sublingual (Ntrostat 11:15 Morphine Sulfate PHA 06/30/24 Transmitted Injection 11:15 Stat Ekg For Chest [facility] 06/30/24 In Process Pain 11:02 Notify Of Changes [facility] 06/30/24 In Process From Base 11:02 Needle Punch Operator For KRYSTA 06/30/24 In Process 24 Hours 11:02 Emergency Dysrhythmia [facility] 06/30/24 In Process Protocol 11:02 Rhythm Strips Once [facility] 06/30/24 In Process Every Shift 11:02 Oxygen By Nasal RT 06/30/24 Transmitted Cannula 11:02 * Cardiology Consult CONS 06/30/24 Transmitted 11:02 Date of Service: Jun 30, 2024 Billing Provider: GRACE BLAKE Common Visit Codes: [id number] INP/OBS CARE (HIGH) GRACE BLAKE Jun 30, 2024 11:10
[2024-06-30] MEDS ORDERED: NITROGLYCERIN 0.4 MG SL TAB SL PRN (11:15)
[2024-06-30] MEDS ORDERED: MORPHINE SULFATE 4 MG/ML SYR/VIAL IV PRN (11:15)
[2024-06-30] MEDS ORDERED: DEXTROSE (50%) 50ML SYRG IV PRN (11:15)
[2024-06-30] MEDS ORDERED: MORPHINE SULFATE INJ 2 MG/ml SYRG IV PRN (11:15)
[2024-06-30] MEDS: ACCU-CHEK COMFORT CURVE STRIP VI SCH (11:30)
[2024-06-30] MEDS: InsuLIN REG 1unit/0.01ml Soln (100units/ml) SC SCH (11:30)
[2024-06-30 11:49] LABS: Lactic Acid w/Reflex 3.1 mmol/L (0.4-2.0)
[2024-06-30] MEDS: IOHEXOL 350 MG/ML 100ML IJ ONE ×2 (12:14)
--- NOTE | 2024-06-30 12:18 | DVH ---
CTA CHEST INDICATION: r/o cavitary lesion TECHNIQUE: Multidetector CTA of the chest was performed of the chest with 100 cc of intravenous contr ast. PULMONARY ANGIOGRAPHY PROTOCOL was utilized using a bolus-tracking technique centered on the tavon n pulmonary artery. Axial, coronal and sagittal multiplanar and MIP reformats were performed. Radiation Dose Information: CT Dose: CTDI volume is 22 mGy. Dose-length product is 817 mGy*cm The dose indicators for CT are the volume Computed Tomography (CT) Dose Index (CTDIvol) and the Dose Length Product (DLP), and are measured in units of mGy and mGy-cm, respectively. These indicators are not patient dose, but values generated from the CT scanner acquisition factors. The report includes radiation exposure data for exposures received during this examination. Comparison: None Findings: Pulmonary artery: There is no evidence of a pulmonary arterial filling defect to suggest pulmonary e mbolism. Lungs/Pleura: There are multi focal patchy opacities in the right upper and bilateral lower lobes co nsistent with airspace disease. There are small patchy opacities with tree-in-bud nodularity in the r ight upper lobe. The findings likely relate to multifocal infectious process. There is no evidence of a cavitary lesion. There is no significant pleural effusion. There is no evidence of pneumothorax. Heart/Vascular Structures: Normal heart size. The thoracic aorta demonstrates normal caliber. There is no evidence of pericardial effusion. Lymph Nodes: There is no evidence of thoracic lymphadenopathy. Musculoskeletal: No acute osseous abnormality. Upper abdomen: There is a nonspecific 4.4 cm retrocardiac cystic structure along the right lateral m argins of the lower esophagus. The visualized intra-abdominal structures appear within normal limits . IMPRESSION: 1. There is no evidence of a pulmonary arterial filling defect to suggest pulmonary embolism. 2. Multifocal patchy opacities in the bilateral lower and left upper lobes and to a lesser degree in the right upper lobe. Findings likely relate to multifocal infectious process. Clinical correlation i s recommended. There is no significant pleural effusion. 3. Nonspecific 4.4 cm retrocardiac cystic structure along the right lateral margins of the lower eso phagus. HS:Y
[2024-06-30] MEDS ORDERED: IPRATROPIUM BROM 0.5 MG/2.5ML INH SOL NEB PRN (12:30)
[2024-06-30] MEDS ORDERED: ALBUTEROL SULF 2.5 MG/0.5ML(0.5%) NEB SOLN NEB PRN (12:30)
[2024-06-30] MEDS ORDERED: FURO20TA4 (12:42)
[2024-06-30] MEDS: POTASSIUM CHL 20 Meq TABLET PO ONE (13:23)
[2024-06-30] MEDS: ASPirin 325 MG TAB PO ONE (13:23)
[2024-06-30] MEDS: ACETAMINOPHEN 325 MG TAB PO PRN (13:24)
[2024-06-30] MEDS: ALBUTEROL SULF 2.5 MG/0.5ML(0.5%) NEB SOLN NEB SCH (13:59)
[2024-06-30] MEDS: IPRATROPIUM BROM 0.5 MG/2.5ML INH SOL NEB SCH (13:59)
[2024-06-30] MEDS: PIPERACILLIN-TAZOB 3.375GM 100 ML IV SCH (14:00)
--- NOTE | 2024-06-30 15:06 | DVHINCON2 ---
Date Seen: Jun 30, 2024 Referring Physician KORI Mejía Reason for Consultation Chest pain and CHF exacerbation History of Present Illness This is a pleasant [place]ian-speaking mostly 68-year-old man who presented to the emergency room via EMS with a chief complaint of shortness of breath for two days. The patient complains of progressive shortness of breath associated with fever, chills, myalgia, and a productive cough with yellow sputum. Denies chest pain, pleuritic chest pain, palpitations, dizziness, or syncopal events. He underwent a 12 lead electrocardiogram revealing a sinus rhythm with ST segment depression to inferolateral leads. These changes have improved compared to his last ECGs from his last visit on 03/2024. At that time, the patient was code STEMI undergoing cardiac catheterization and coronary angiogram with successful PTCA and stenting of the RCA including one NINOSKA on 03/05/2024. Reports compliance with DAPT, GDMT for CHF, and lipid lowering agent. The last saw his freezer assistant at [facility] past . Significant medical history includes severe coronary artery disease status post PTCA with unspecified stent placement 7 years ago and recent STEMI with successful PCI of the RCA x 1 NINOSKA, congestive heart failure with recovered LVEF post PTCA, nonsustained ventricular tachycardia on amiodarone therapy, peripheral vascular disease, hypertension, dyslipidemia, [id number] diabetes mellitus, thyroid cancer with Mets to lung and kidney and recent chemotherapy, chronic respiratory failure with O2 dependence, recent tobacco dependence, and obesity. Past Medical History Past medical history reviewed. No other significant than mentioned above. Past Surgical History PTCA to the RCA x1 NINOSKA, 03/05/2024 PTCA to unspecified vessel, seven years ago Family History: Diabetes mellitus G8 FATHER, Family History Family history reviewed. Social History Denies the use of illicit drugs or tobacco use. Admits to occasional alcohol use. Allergies: Coded Allergies: No Known Drug Allergy (Verified Allergy, Unknown, 09/21/20) Home Meds Active Scripts Atorvastatin Calcium (Lipitor) 40 Mg Tab, 1 TAB PO DAILY for 60 Days, #60 TAB 5 Refills Prov:DRE NAPIER MD 03/07/24 Nitroglycerin (NTROSTAT SUBLINGUAL) 0.4 Mg Sl, 0.4 MG SL Q5MINP PRN for 20 Days, #20 TAB Prov:DRE NAPIER MD 03/07/24 Lisinopril (Lisinopril) 5 Mg Tab, 5 MG PO DAILY for 60 Days, #60 TAB Prov:DRE NAPIER MD 03/07/24 Clopidogrel Bisulfate (CLOPIDOGREL) 75 Mg Tab, 75 MG PO DAILY for 60 Days, #60 TAB Prov:DRE NAPIER MD 03/07/24 Carvedilol (COREG) 3.125 Mg Tab, 3.125 MG PO DAILY for 60 Days, #60 TAB Prov:DRE NAPIER MD 03/07/24 Aspirin (Aspirin Low Dose) 81 Mg Tab, 81 MG PO DAILY for 60 Days, #60 TAB Prov:DRE NAPIER MD 03/07/24 Amiodarone HCl (Amiodarone HCl) 200 Mg Tab, 200 MG PO Q12HR for 60 Days, #120 TAB Prov:DRE NAPIER MD 03/07/24 Reported Medications Furosemide (Furosemide) 20 Mg Tab, 1 06/30/24 Oyster Shell Calcium (Calcium Oyster Shell) 500 Mg Tab, 500 MG PO DAILY, TAB 09/21/20 Clopidogrel Bisulfate (Plavix) 75 Mg Tab, 75 MG PO DAILY 07/28/20 Levothyroxine Sodium (Levothyroxine Sodium) 200 Mcg Tab, 200 MCG PO QAM 07/28/20 Cholecalciferol (VITAMIN D3) 2,000 Unit Tab, 5000 UNIT PO DAILY 07/28/20 Home Meds Home medications reviewed. Current Medications Current Medications Medications (Trade) Dose Ordered Sig/Breonna Route PRN Reason Start Time Stop Time Status Last Admin Piperacillin Sod/ Tazobactam Sod 100 ml @ 25 mls/hr Q8HR IV 06/30/24 14:00 Azithromycin 250 ml @ 125 mls/hr DAILY IV 07/01/24 10:00 Diagnostic Test (Pha) (Accu-Chek Comfort Curve T) 1 strip ACHS 06/30/24 11:30 06/30/24 11:30 Insulin Human Regular (InsuLIN R) ACHS SC 06/30/24 11:30 Dextrose 50 ml UD PRN IV Blood Sugar LESS THAN 60 06/30/24 11:15 Morphine Sulfate 2 mg Q30MP PRN IV FOR CHEST PAIN 06/30/24 11:15 06/30/24 11:25 DC Acetaminophen (Tylenol Tablet) 650 mg Q6HP PRN PO MILD PAIN (1-3 PAIN SCALE) 06/30/24 11:15 06/30/24 13:24 Ondansetron HCl (Zofran) 4 mg Q4HP PRN IV NAUSEA / VOMITING 06/30/24 11:15 Nitroglycerin (Ntrostat Sublingual) 0.4 mg Q5MINP PRN SL FOR CHEST PAIN 06/30/24 11:15 Morphine Sulfate 2 mg Q30M PRN IV FOR CHEST PAIN 06/30/24 11:15 Sodium Chloride 1,000 ml @ 100 mls/hr Q10H IV 06/30/24 12:15 Albuterol (Ventolin Medneb) 2.5 mg Q4HWA NEB 06/30/24 14:00 06/30/24 13:59 Albuterol (Ventolin Medneb) 2.5 mg Q2HPRN PRN NEB SHORTNESS OF BREATH 06/30/24 12:30 Ipratropium [place] (Atrovent Medneb) 0.5 mg Q4HWA NEB 06/30/24 14:00 06/30/24 13:59 Ipratropium [place] (Atrovent Medneb) 0.5 mg Q2HPRN PRN NEB SHORTNESS OF BREATH 06/30/24 12:30 Amiodarone HCl (Cordarone Tablet) 200 mg Q12HR PO 06/30/24 22:00 Aspirin (Ecotrin Enteric Coated Tablet) 81 mg DAILY PO 07/01/24 10:00 Carvedilol (Coreg Tablet) 3.125 mg DAILY PO 07/01/24 10:00 Clopidogrel Bisulfate (Plavix) 75 mg DAILY PO 07/01/24 10:00 Lisinopril (Zestril Tablet) 5 mg DAILY PO 07/01/24 10:00 Atorvastatin Calcium (Lipitor) 40 mg HS PO 06/30/24 22:00 Cholecalciferol (Vitamin D3 Tablet) 5,000 unit DAILY PO 07/01/24 10:00 Levothyroxine Sodium (Synthroid Tablet) 200 mcg QAM PO 07/01/24 07:00 Patient Own Medication 500 mg DAILY PO 07/01/24 10:00 Review of Systems Constitutional: Fever, chills, myalgia Ears, Nose, & Throat: No symptom reported Eyes: No symptom reported Neurological: No symptoms reported Pulmonary/Respiratory: SOB, productive cough with yellow sputum Cardiovascular: No symptom reported Gastrointestinal: No symptom reported Genitourinary: No symptom reported Musculoskeletal: No symptom reported Skin: No symptom reported Psychiatric: No symptom reported Endocrine: No symptom reported Hemotologic/Lymphatic: No symptom reported Vital Signs Vital Signs Date Time Temp Pulse Resp B/P (MAP) Pulse Ox O2 Delivery O2 Flow Rate FiO2 06/30/24 13:59 18 96 Nasal Cannula* 4 36 06/30/24 13:53 98.6 73 134/71 (92) 98.6 Physical Exam General Appearance: Cooperative. Obese. Moderate acute respiratory distress Head Exam: Normal inspection Neck Exam: Normal inspection. Non-tender. Normal alignment Pulmonary/Respiratory: Chest non-tender. Coarse bilateral breath sounds. O2 via NC Cardiovascular/Chest: Regular rate and rhythm. S1, S2. Sinus rhythm with ST segment depression to inferolateral leads. No murmurs. Peripheral Pulses: 2+ Radial (R). 2+ Radial (L). 2+ Pedal (R). 2+ Pedal (L) Abdominal Exam: Normal bowel sounds. Soft. Nontender. No hepatospenomegaly. No masses Ankle Exam: Negative ankle edema Lower extremities: Negative lower extremity edema Neuro/Mental Status: A&O x4. Coherent Thoughts/Psych: Normal thought pattern. Appropriate mood and affect. Good judgement and insight Appearance: Moderate acute respiratory distress. Appears lethargic Skin Exam: Normal inspection. Normal color. Warm. Dry Labs/Diagnostic Data Labs Test 06/30/24 13:19 06/30/24 11:07 06/30/24 08:32 06/30/24 07:41 Range/Units Lactic Acid Level 2.0 0.4-2.0 mmol/L Magnesium Level 1.8 1.6-2.6 mg/dL Troponin I High Sensitivity 18 </=54 ng/L Urine Color Yellow Yellow Urine Clarity Clear Clear Urine pH 6.0 5.0-9.0 Urine Specific [place] 1.025 1.001-1.035 Urine Protein 2+ H Negative Urine Ketones 1+ H Negative Urine Blood Negative Negative /uL Urine Nitrite Negative Negative Urine Bilirubin Negative Negative Urine Urobilinogen Normal Negative mg/dL Urine Leukocyte Esterase Trace Negative /uL Urine RBC <1 0 - 3 /hpf Urine Microscopic WBC 8 H 0-3 /HPF Urine Squamous Epithelial Cells Few <5 /hpf Urine Bacteria None seen None Seen /hpf Urine Hyaline Casts Few 0 - 2 /lpf Urine Mucus Few None Seen Urine Glucose Trace Normal mg/dL White Blood Count 17.2 H 4.4-10.8 10^3/uL Red Blood Count 5.98 H 4.5-5.90 10^6/uL Hemoglobin 11.2 L 13.5-17.5 g/dL Hematocrit 37.3 L 41.0-53.0 % Mean Corpuscular Volume 62.4 L 80.0-100.0 fL Mean Corpuscular Hemoglobin 18.7 L 28.0-32.0 pg Mean Corpuscular Hemoglobin Concent 30.0 L 32.0-36.0 g/dL Red Cell Distribution Width 22.1 H 11.8-14.3 % Platelet Count 289 140-450 10^3/uL Mean Platelet Volume 8.8 6.9-10.8 fL Neutrophils (%) (Auto) 92.5 H 37.0-80.0 % Lymphocytes (%) (Auto) 2.4 L 10.0-50.0 % Monocytes (%) (Auto) 4.6 0.0-12.0 % Eosinophils (%) (Auto) 0.1 0.0-7.0 % Basophils (%) (Auto) 0.4 0.0-2.0 % Neutrophils # (Auto) 15.9 H 1.6-8.6 10 ^3/uL Lymphocytes # (Auto) 0.4 0.4-5.4 10 ^3/uL Monocytes # (Auto) 0.8 0-1.3 10 ^3/uL Eosinophils # (Auto) 0 0-0.8 10 ^3/uL Basophils # (Auto) 0.1 0-0.2 10 ^3/uL Nucleated Red Blood Cells 0.0 % Platelet Estimate [place] Large Platelets Few Hypochromasia (manual) Moderate Anisocytosis (manual) Slight Microcytosis Moderate Ovalocytes Moderate Sodium Level 139 136-145 mmol/L Potassium Level 3.2 L 3.5-5.1 mmol/L Chloride Level 105 98-107 mmol/L Carbon Dioxide Level 23 20-31 mmol/L Anion Gap 11 5-15 Blood Urea Nitrogen 17 9-23 mg/dL Creatinine 0.87 0.700-1.30 mg/dL Glomerular Filtration Rate Calc 95 >90 mL/min BUN/Creatinine Ratio 19.5 10.0-20.0 Serum Glucose 150 H 74-106 mg/dL Hemoglobin A1c 6.5 H <5.7 % A1C Calcium Level 8.7 8.7-10.4 mg/dL Assessment Sepsis with multifocal pneumonia Acute on chronic respiratory failure Coronary artery disease s/p PTCA of the RCA x 1 NINOSKA on 03/05/2024 Hx of congestive heart failure with recovered LVEF of 55% Non-sustained ventricular tachycardia, on amiodarone therapy [id number] diabetes mellitus Peripheral vascular disease Hypertension Dyslipidemia Recent hx of tobacco use Obesity Plan/Recommendation (Dr. Montalvo) The patient presents with sepsis secondary to multifocal PNA. Continue DAPT, lipid lowering agent, BB, and ACEI given recent STEMI with successful PTCA to the RCA including one NINOSKA. Transition from amiodarone to flecainide therapy. NSVT episodes during last admission likely secondary to RI. The patient can benefit from an outpatient event monitor to discern further need of antiarrhythmic therapy. Recent transthoracic echocardiogram (03/06/2024) revealed EF 55% with grade I diastolic dysfunction. Continue ABX therapy and septic workup per primary care team. Cardiac stable at this time. Follow-up with primary freezer assistant as scheduled. Kindly call if in need to re-consult. Thank you for allowing us to participate in this patient's care. This medical document was created using an electronic medical record system with voice recognition software and computerized dictation system. Although this doc ument has been carefully reviewed, there might still be some phonetic and typographical errors. Occasional wrong-word or ``sound-alike substitutions may have occurred due to the inherent limitations of voice recognition software. These areas are purely typographical due to imperfections of the software programs and do not reflect any compromise in the patient's medical care. Jc maciel read the chart carefully and recognize, using context, where these substitutions have occurred. Plan discussed with: Patient, Other NYHA Physical activity limitations: NA Date of Service: Jun 30, 2024 Billing Provider: PANTERA PAGAN Cardiology Common Codes: [id number] INP/OBS CARE (High) PANTERA PAGAN Jun 30, 2024 15:06
[2024-06-30] MEDS: MAGNESIUM SULFATE 1GM/100ML 100 ML IV ONE (15:48)
[2024-06-30] MEDS: SODIUM CHLORIDE 0.9% 1,000 ML IV SCH (19:19)
[2024-06-30] MEDS ORDERED: AMIODARONE HCL 200 MG TAB PO SCH (22:00)
[2024-06-30] MEDS: ATORVASTATIN 20 MG TAB PO SCH (23:23)
[2024-06-30] MEDS: FLECAINIDE ACETATE 50 MG TAB PO SCH (23:39)
[2024-07-01] VITALS (19 sets, daily range): BP systolic 116–142; BP diastolic 20–87; PULSE 70–87; RESP 16–20; TEMP 97.4–99.3; O2SAT 92–100
[2024-07-01] MEDS: LEVOTHYROXINE SODIUM 100 MCG TAB PO SCH (05:08)
[2024-07-01 09:36] LABS: Basophils # (auto) 0 10 ^3/uL (0-0.2); Basophils % (auto) 0.1 % (0.0-2.0); Eosinophils # (auto) 0.1 10 ^3/uL (0-0.8); Eosinophils % (auto) 0.6 % (0.0-7.0); Hematocrit 32.6 % (41.0-53.0); Hemoglobin 9.4 g/dL (13.5-17.5); Lymphocytes # (auto) 0.8 10 ^3/uL (0.4-5.4); Lymphocytes % (auto) 6.4 % (10.0-50.0); Mean Corpuscular Hemoglobin 18.5 pg (28.0-32.0); Mean Corpuscular Hgb Conc. 28.9 g/dL (32.0-36.0); Mean Corpuscular Volume 64.2 fL (80.0-100.0); Monocytes # (auto) 0.9 10 ^3/uL (0-1.3); Monocytes % (auto) 7.3 % (0.0-12.0); Neutrophils # (auto) 10.9 10 ^3/uL (1.6-8.6); Neutrophils % (auto) 85.6 % (37.0-80.0); Platelet Count (auto) 241 10^3/uL (140-450); Red Blood Cells 5.08 10^6/uL (4.5-5.90); Red Cell Distribution Width 22.2 % (11.8-14.3); White Blood Cell 12.7 10^3/uL (4.4-10.8)
[2024-07-01 09:41] LABS: Alanine Aminotransferase 12 U/L (7-40); Alkaline Phosphatase 83 U/L (46-116); Anion Gap 9 (5-15); BUN/Creatinine Ratio 16.5 (10.0-20.0); Bilirubin, Total 0.7 mg/dL (0.2-1.0); Blood Urea Nitrogen 16 mg/dL (9-23); Carbon Dioxide 24 mmol/L (20-31); Chloride 104 mmol/L (98-107); Potassium 3.8 mmol/L (3.5-5.1); Sodium 137 mmol/L (136-145); Total Protein 6.2 g/dL (5.7-8.2)
[2024-07-01 09:44] LABS: Aspartate Aminotransferase 11 U/L (13-40); Calcium 8.5 mg/dL (8.7-10.4); Glucose 191 mg/dL (74-106)
[2024-07-01] MEDS: AZITHROMYCIN 500MG/ 250ML 250 ML IV SCH (09:53)
[2024-07-01] MEDS: CHOLECALCIFEROL (VITD3) 1,000UNIT=25mCg TAB PO SCH (09:54)
[2024-07-01] MEDS: CLOPIDOGREL BISULFATE 75 MG TAB PO SCH (09:54)
[2024-07-01] MEDS: CARVEDILOL 3.125 MG TAB PO SCH (09:55)
[2024-07-01] MEDS: LISINOPRIL 5 MG TAB PO SCH (09:55)
[2024-07-01] MEDS: ASPirin-EC 81 mg tab PO SCH (09:56)
[2024-07-01] MEDS: OYSTER SHELL CALCIUM 500 MG PO SCH (09:56)
[2024-07-01 10:21] LABS: Hepatitis B Surface Antigen Negative (Negative); Hepatitis C Antibody Negative (Negative)
--- NOTE | 2024-07-01 15:46 | DVHPN2 ---
Progress Note Date Seen: Jul 01, 2024 Medical Necessity Reason Pt with a Central, PICC or Fol: No Subjective Patient reports: No new complaints Review of Systems: HEENT:Normal, CVS:Normal, RESPIRATORY:Normal, GI:Normal, :Normal, MSK:Normal, NEURO:Normal Objective vital signs Vital Sign Date Time Temp Pulse Resp B/P (MAP) Pulse Ox O2 Delivery O2 Flow Rate FiO2 07/01/24 15:10 77 18 98 07/01/24 12:22 98.6 126/87 (100) 98.6 07/01/24 10:00 Room Air* 0 21 medications Current Medications Medications Dose Ordered Sig/Breonna Route Start Time Stop Time Status Last Admin Dose Admin Piperacillin Sod/ Tazobactam Sod 100 ml @ 25 mls/hr Q8HR IV 06/30/24 14:00 07/01/24 15:03 25 MLS/HR Azithromycin 250 ml @ 125 mls/hr DAILY IV 07/01/24 10:00 07/01/24 09:53 125 MLS/HR Diagnostic Test (Pha) 1 strip ACHS 06/30/24 11:30 07/01/24 11:30 1 STRIP Insulin Human Regular ACHS SC 06/30/24 11:30 07/01/24 11:30 2 UNITS Dextrose 50 ml UD PRN IV 06/30/24 11:15 Acetaminophen 650 mg Q6HP PRN PO 06/30/24 11:15 06/30/24 13:24 650 MG Ondansetron HCl 4 mg Q4HP PRN IV 06/30/24 11:15 Nitroglycerin 0.4 mg Q5MINP PRN SL 06/30/24 11:15 Morphine Sulfate 2 mg Q30M PRN IV 06/30/24 11:15 Albuterol 2.5 mg Q4HWA NEB 06/30/24 14:00 07/01/24 15:04 2.5 MG Albuterol 2.5 mg Q2HPRN PRN NEB 06/30/24 12:30 Ipratropium [place] 0.5 mg Q4HWA NEB 06/30/24 14:00 07/01/24 15:04 0.5 MG Ipratropium [place] 0.5 mg Q2HPRN PRN NEB 06/30/24 12:30 Carvedilol 3.125 mg DAILY PO 07/01/24 10:00 07/01/24 09:55 3.125 MG Clopidogrel Bisulfate 75 mg DAILY PO 07/01/24 10:00 07/01/24 09:54 75 MG Lisinopril 5 mg DAILY PO 07/01/24 10:00 07/01/24 09:55 5 MG Atorvastatin Calcium 40 mg HS PO 06/30/24 22:00 06/30/24 23:23 40 MG Cholecalciferol 5,000 unit DAILY PO 07/01/24 10:00 07/01/24 09:54 5,000 UNIT Levothyroxine Sodium 200 mcg QAM PO 07/01/24 07:00 07/01/24 05:08 200 MCG Patient Own Medication 500 mg DAILY PO 07/01/24 10:00 Flecainide Acetate 50 mg Q12HR PO 06/30/24 22:00 07/01/24 09:54 50 MG Examination: GENERAL:Normal, HEENT:Normal, NECK:Normal, LUNGS:Normal, CVS:Normal, ABDOMEN:Normal, MSK:Normal, SKIN:Normal, NEURO:Normal, :Normal laboratory and microbiology Laboratory Tests 07/01/24 08:40 Test 07/01/24 08:40 Range/Units Serum Glucose 191 H 74-106 mg/dL Microbiology Date/Time Source Procedure Growth Status 06/30/24 11:07 Blood Blood Culture - Preliminary NO GROWTH AFTER 24 HOURS OF INCUBATION. Resulted Problem List/Assessment/Plan Problem List/Assessment/Plan #1 sepsis with pneumonia: iv antibiotics #2 cad s/p stent: hold asa #3 hemoptysis: hold asa #4 anemia #5 dm: ssi #6 ns vt: on flecainide #7 obesity #8 hypothyroidism: check tsh #9 htn #10 copd #11 pvd advance care planning- full code- time spent 19 mins Plan discussed with: Patient Date of Service: Jul 01, 2024 Billing Provider: KAITLYNN LUNA MD Common Visit Codes: [id number] INP/OBS CARE(HIGH) Secondary Visit Codes: [id number] CARE PLAN 30 MINUTES KAITLYNN LUNA MD Jul 01, 2024 15:46
[2024-07-02] VITALS (20 sets, daily range): BP systolic 102–161; BP diastolic 66–86; PULSE 65–91; RESP 15–20; TEMP 98–98.6; O2SAT 92–100
[2024-07-02 05:32] LABS: Basophils # (auto) 0 10 ^3/uL (0-0.2); Monocytes # (auto) 0.9 10 ^3/uL (0-1.3)
[2024-07-02 05:34] LABS: Basophils % (auto) 0.1 % (0.0-2.0); Eosinophils # (auto) 0.1 10 ^3/uL (0-0.8); Eosinophils % (auto) 1.4 % (0.0-7.0); Hematocrit 29.7 % (41.0-53.0); Hemoglobin 9.1 g/dL (13.5-17.5); Lymphocytes # (auto) 1.3 10 ^3/uL (0.4-5.4); Lymphocytes % (auto) 13.2 % (10.0-50.0); Mean Corpuscular Hgb Conc. 30.6 g/dL (32.0-36.0); Mean Corpuscular Volume 62.2 fL (80.0-100.0); Monocytes % (auto) 9.3 % (0.0-12.0); Neutrophils # (auto) 7.5 10 ^3/uL (1.6-8.6); Platelet Count (auto) 226 10^3/uL (140-450); Red Blood Cells 4.77 10^6/uL (4.5-5.90); White Blood Cell 9.9 10^3/uL (4.4-10.8)
[2024-07-02 05:42] LABS: Chloride 106 mmol/L (98-107); Potassium 3.9 mmol/L (3.5-5.1); Sodium 141 mmol/L (136-145)
[2024-07-02 05:43] LABS: Anion Gap 11 (5-15); Anisocytosis Slight; Carbon Dioxide 24 mmol/L (20-31); Hypochromia Marked; Platelet Estimate Adequate
[2024-07-02 05:48] LABS: BUN/Creatinine Ratio 17.1 (10.0-20.0); Blood Urea Nitrogen 13 mg/dL (9-23)
[2024-07-02 05:49] LABS: Calcium 8.4 mg/dL (8.7-10.4); Glucose 107 mg/dL (74-106)
--- NOTE | 2024-07-02 06:05 | DVH ---
CHEST RADIOGRAPH Indication: pneumonia Technique: Single frontal view of the chest was obtained COMPARISON: XY CHEST PORTABLE on DOS: 06/30/24, XY CHEST PORTABLE on DOS: 03/05/24 FINDINGS: Lines and Tubes: None Lungs: Slightly increased multifocal airspace disease. Pleura: No effusion. No pneumothorax. Cardiomediastinal contours: Unremarkable Bones: Unremarkable IMPRESSION: Slightly increased multifocal airspace disease.
--- NOTE | 2024-07-02 16:57 | DVHPN2 ---
Subjective 07/02 - pt looks well , wants to go home. cxr and pex are terrible. Reviewed: H&P Changes from previous H/P or p: No Changes General: Per HPI Objective Vitals Vital Signs Date Time Temp Pulse Resp B/P (MAP) Pulse Ox O2 Delivery O2 Flow Rate FiO2 07/02/24 13:50 72 18 100 07/02/24 13:45 Room Air 0.0 07/02/24 13:45 21 07/02/24 13:00 98.0 151/82 (105) 98.0 Intake/Output Intake and Output 07/02/24 07:00 Intake Total 1750 ml Output Total 1100 ml Balance 650 ml Intake Oral 750 ml IV Total 1000 ml Output Urine Total 1100 ml Exam NAD, rales upto midlungs, +1 edema pitting LE BL. Medications Current Medications Medications Dose Ordered Sig/Breonna Route Start Time Stop Time Status Last Admin Dose Admin Piperacillin Sod/ Tazobactam Sod 100 ml @ 25 mls/hr Q8HR IV 06/30/24 14:00 07/02/24 03:57 25 MLS/HR Azithromycin 250 ml @ 125 mls/hr DAILY IV 07/01/24 10:00 07/02/24 09:33 125 MLS/HR Diagnostic Test (Pha) 1 strip ACHS 06/30/24 11:30 07/02/24 11:55 1 STRIP Insulin Human Regular ACHS SC 06/30/24 11:30 07/02/24 11:57 3 UNITS Dextrose 50 ml UD PRN IV 06/30/24 11:15 Acetaminophen 650 mg Q6HP PRN PO 06/30/24 11:15 07/02/24 03:12 650 MG Ondansetron HCl 4 mg Q4HP PRN IV 06/30/24 11:15 Nitroglycerin 0.4 mg Q5MINP PRN SL 06/30/24 11:15 Morphine Sulfate 2 mg Q30M PRN IV 06/30/24 11:15 Albuterol 2.5 mg Q4HWA NEB 06/30/24 14:00 07/02/24 13:45 2.5 MG Albuterol 2.5 mg Q2HPRN PRN NEB 06/30/24 12:30 Ipratropium [place] 0.5 mg Q4HWA NEB 06/30/24 14:00 07/02/24 13:45 0.5 MG Ipratropium [place] 0.5 mg Q2HPRN PRN NEB 06/30/24 12:30 Carvedilol 3.125 mg DAILY PO 07/01/24 10:00 07/02/24 09:26 3.125 MG Clopidogrel Bisulfate 75 mg DAILY PO 07/01/24 10:00 07/02/24 09:26 75 MG Lisinopril 5 mg DAILY PO 07/01/24 10:00 07/02/24 09:26 5 MG Atorvastatin Calcium 40 mg HS PO 06/30/24 22:00 07/01/24 21:24 40 MG Cholecalciferol 5,000 unit DAILY PO 07/01/24 10:00 07/02/24 09:25 5,000 UNIT Levothyroxine Sodium 200 mcg QAM PO 07/01/24 07:00 07/02/24 03:58 200 MCG Patient Own Medication 500 mg DAILY PO 07/01/24 10:00 Flecainide Acetate 50 mg Q12HR PO 06/30/24 22:00 07/02/24 09:26 50 MG Laboratory Results Laboratory Tests 07/02/24 04:47 Chemistry Test 07/02/24 04:47 Calcium Level 8.4 mg/dL (8.7-10.4) L HgA1c, TSH Test 07/02/24 04:47 Thyroid Stimulating Hormone (TSH) 0.01 uIU/mL (0.55-4.78) L Urinalysis Test 06/30/24 08:32 Urine Color Yellow (Yellow) Urine Clarity Clear (Clear) Urine pH 6.0 (5.0-9.0) Urine Specific [place] 1.025 (1.001-1.035) Urine Protein 2+ (Negative) H Urine Ketones 1+ (Negative) H Urine Blood Negative /uL (Negative) Urine Nitrite Negative (Negative) Urine Bilirubin Negative (Negative) Urine Urobilinogen Normal mg/dL (Negative) Urine Leukocyte Esterase Trace /uL (Negative) Urine RBC <1 /hpf (0 - 3) Urine Microscopic WBC 8 /HPF (0-3) H Urine Squamous Epithelial Cells Few /hpf (<5) Urine Bacteria None seen /hpf (None Seen) Urine Hyaline Casts Few /lpf (0 - 2) Urine Mucus Few (None Seen) Urine Glucose Trace mg/dL (Normal) Microbiology Microbiology Date/Time Source Procedure Growth Status 06/30/24 11:07 Blood Blood Culture - Preliminary NO GROWTH AFTER 48 HOURS OF INCUBATION. Resulted Labs and/or images reviewed: Labs reviewed by me, Image(s) reviewed by me Assessment/Plan Assessment/Plan # sepsis with pneumonia: iv antibiotics # ac on ch diast CHF exacerbation possible - lasix 40 bid, likely vol overoad cause hemoptysis. # cad s/p stent: hold asa # hemoptysis: hold asa # anemia # dm: ssi # ns vt: on flecainide # obesity # hypothyroidism: check tsh # htn # copd # pvd Plan discussed with: Patient My Orders Orders - DRE NAPIER MD Procedure Category Date Status Time Furosemide Injection PHA 07/02/24 Verified (Lasix Injection) 17:00 Date of Service: Jul 02, 2024 Billing Provider: DRE NAPIER MD Common Visit Codes: [id number] INP/OBS CARE(HIGH) DRE NAPIER MD Jul 02, 2024 16:57
[2024-07-02] MEDS: FUROSEMIDE 40 MG/4 ML VIAL IV SCH (18:44)
[2024-07-02] MEDS: ONDANSETRON HCL 4 MG/2 ML VIAL IV PRN (21:49)
[2024-07-03] VITALS (9 sets, daily range): BP systolic 122–134; BP diastolic 61–70; PULSE 61–74; RESP 12–18; TEMP 98.2–98.3; O2SAT 90–100
[2024-07-03 06:51] LABS: Alanine Aminotransferase 14 U/L (7-40); Albumin 3.9 g/dL (3.2-4.8); Alkaline Phosphatase 91 U/L (46-116); Anion Gap 12 (5-15); BUN/Creatinine Ratio 14.6 (10.0-20.0); Blood Urea Nitrogen 12 mg/dL (9-23); Calcium 9.2 mg/dL (8.7-10.4); Carbon Dioxide 24 mmol/L (20-31); Chloride 104 mmol/L (98-107); Glucose 96 mg/dL (74-106); Potassium 3.6 mmol/L (3.5-5.1); Sodium 140 mmol/L (136-145)
[2024-07-03 06:52] LABS: Aspartate Aminotransferase 10 U/L (13-40); Bilirubin, Total 0.5 mg/dL (0.2-1.0); Total Protein 6.2 g/dL (5.7-8.2)
[2024-07-03] MEDS ORDERED: FURO20TA3 PO (11:31)
[2024-07-03] MEDS ORDERED: DOXY1CAP57 PO (11:31)
--- NOTE | 2024-07-03 11:36 | DVHDS2 ---
Discharge Summary Date of Admission Jun 30, 2024 at 11:02 Date of Discharge: Jul 03, 2024 Labs/Diagnostic Data: Laboratory Results Test 07/03/24 06:13 07/03/24 05:00 07/02/24 04:47 07/01/24 08:40 POC Glucose 110 mg/dl (70-106) Sodium Level 140 mmol/L (136-145) Potassium Level 3.6 mmol/L (3.5-5.1) Chloride Level 104 mmol/L (98-107) Carbon Dioxide Level 24 mmol/L (20-31) Anion Gap 12 (5-15) Blood Urea Nitrogen 12 mg/dL (9-23) Creatinine 0.82 mg/dL (0.700-1.30) Glomerular Filtration Rate Calc 97 mL/min (>90) BUN/Creatinine Ratio 14.6 (10.0-20.0) Serum Glucose 96 mg/dL (74-106) Calcium Level 9.2 mg/dL (8.7-10.4) Total Bilirubin 0.5 mg/dL (0.2-1.0) Aspartate Amino Transferase (AST) 10 U/L (13-40) Alanine Aminotransferase (ALT) 14 U/L (7-40) Alkaline Phosphatase 91 U/L (46-116) Total Protein 6.2 g/dL (5.7-8.2) Albumin 3.9 g/dL (3.2-4.8) White Blood Count 9.9 10^3/uL (4.4-10.8) Red Blood Count 4.77 10^6/uL (4.5-5.90) Hemoglobin 9.1 g/dL (13.5-17.5) Hematocrit 29.7 % (41.0-53.0) Mean Corpuscular Volume 62.2 fL (80.0-100.0) Mean Corpuscular Hemoglobin 19.0 pg (28.0-32.0) Mean Corpuscular Hemoglobin Concent 30.6 g/dL (32.0-36.0) Red Cell Distribution Width 22.0 % (11.8-14.3) Platelet Count 226 10^3/uL (140-450) Mean Platelet Volume 8.9 fL (6.9-10.8) Neutrophils (%) (Auto) 76.0 % (37.0-80.0) Lymphocytes (%) (Auto) 13.2 % (10.0-50.0) Monocytes (%) (Auto) 9.3 % (0.0-12.0) Eosinophils (%) (Auto) 1.4 % (0.0-7.0) Basophils (%) (Auto) 0.1 % (0.0-2.0) Neutrophils # (Auto) 7.5 10 ^3/uL (1.6-8.6) Lymphocytes # (Auto) 1.3 10 ^3/uL (0.4-5.4) Monocytes # (Auto) 0.9 10 ^3/uL (0-1.3) Eosinophils # (Auto) 0.1 10 ^3/uL (0-0.8) Basophils # (Auto) 0 10 ^3/uL (0-0.2) Nucleated Red Blood Cells 0.0 % Platelet Estimate Adequate Hypochromasia (manual) Marked Anisocytosis (manual) Slight Microcytosis Marked Thyroid Stimulating Hormone (TSH) 0.01 uIU/mL (0.55-4.78) Hepatitis B Surface Antigen Negative (Negative) Hepatitis C Antibody Negative (Negative) Test 06/30/24 13:19 06/30/24 11:07 06/30/24 08:32 06/30/24 07:41 Lactic Acid Level 2.0 mmol/L (0.4-2.0) Magnesium Level 1.8 mg/dL (1.6-2.6) Troponin I High Sensitivity 18 ng/L (</=54) Urine Color Yellow (Yellow) Urine Clarity Clear (Clear) Urine pH 6.0 (5.0-9.0) Urine Specific [place]raine 1.025 (1.001-1.035) Urine Protein 2+ (Negative) Urine Ketones 1+ (Negative) Urine Blood Negative /uL (Negative) Urine Nitrite Negative (Negative) Urine Bilirubin Negative (Negative) Urine Urobilinogen Normal mg/dL (Negative) Urine Leukocyte Esterase Trace /uL (Negative) Urine RBC <1 /hpf (0 - 3) Urine Microscopic WBC 8 /HPF (0-3) Urine Squamous Epithelial Cells Few /hpf (<5) Urine Bacteria None seen /hpf (None Seen) Urine Hyaline Casts Few /lpf (0 - 2) Urine Mucus Few (None Seen) Urine Glucose Trace mg/dL (Normal) Large Platelets Few Ovalocytes Moderate Hemoglobin A1c 6.5 % A1C (<5.7) B-Type Natriuretic Peptide 264.51 pg/mL (0-100) Other Laboratory Tests 07/03/24 05:00 07/02/24 04:47 Brief Hx & Hospital Course: PMHx: Significant medical history includes severe coronary artery disease status post PTCA with unspecified stent placement 7 years ago and recent STEMI with successful PCI of the RCA x 1 NINOSKA, congestive heart failure with recovered LVEF post PTCA, nonsustained ventricular tachycardia on amiodarone therapy, peripheral vascular disease, hypertension, dyslipidemia, [id number] diabetes mellitus, thyroid cancer with Mets to lung and kidney and recent chemotherapy, chronic respiratory failure with O2 dependence, recent tobacco dependence, and obesity. HPI: 68-year-old man who presented to the emergency room via EMS with a chief complaint of shortness of breath for two days. The patient complains of progressive shortness of breath associated with fever, chills, myalgia, and a productive cough with yellow sputum. Denies chest pain, pleuritic chest pain, palpitations, dizziness, or syncopal events. course: on admit noted to have elevated bnp , CTA PE study negative. appears volume overload, cough hemoptyss resovled wth diuresis. patient cxr and ct concerning for pneumonia. treated with ctz/azithro and improves again. near dischaarege on RA, VS stable. plan for discharge with close f/u with PCP as per dc plan below. discharge diagnosis: # sepsis with pneumonia # acute on chronic, diastolic and systolic CHF exacerbation # Hx of congestive heart failure with recovered LVEF of 55% # cad s/p stent # hemoptysis, resolved # anemia # dm t2 # ns vt # obesity # hypothyroidism # htn # copd # pvd discharge plan: -finish five days of doxycycline 100 mg twice daily -take extra Lasix for next five days; furosemide 20 mg tablet twice daily; after five days continue furosemide 20 mg tablet once daily -continue other medications (amiodarone, aspirin, Lipitor, Coreg, Plavix, Synthroid, lisinopril) - follow up PCP. PCP team repeat BMP to follow creatinine. Condition at Discharge: Fair Final Diagnosis/Problems List # sepsis with pneumonia # acute on chronic, diastolic and systolic CHF exacerbation # Hx of congestive heart failure with recovered LVEF of 55% # cad s/p stent # hemoptysis, resolved # anemia # dm t2 # ns vt # obesity # hypothyroidism # htn # copd # pvd Discharge Disposition: Home Discharge Instruct/Medications Diet: Consistent carbohydrate, Cardiac 2g Na,low cholest Activity: No Restrictions, As Tolerated Follow Up/Referral: PCP Medications: Has been low Discharge Statement: "Patient was advised to return to the ER or call 911 if any headaches, dizziness, shortness of breath, chest pain, abdominal pain, bleeding, fevers, or worsening of medical condition. Patient was counseled about treatment plan, medications, possible side effects, patientverbalized understanding. All questions were answered to the best of my ability. This discharge took greater then 30 minutes in planning, reviewing documentation, counseling the patient, and discussing with other team members." ASSESSMENT ASSESSMENT Assessment # sepsis with pneumonia # ac on ch diast CHF exacerbation possible # cad s/p stent # hemoptysis, resolved # anemia # dm # ns vt # obesity # hypothyroidism # htn # copd # pvd Date of Service: Jul 03, 2024 Billing Provider: DRE NAPIER MD Common Visit Codes: 18409-UKH/OBS DISCH DAY >30min DRE NAPIER MD Jul 03, 2024 11:36
== END 2024-07-03 12:20 | disposition home or self-care (01) | DRG 871 ==
LOC: ER 06:54 → EDBD 06:54 → TELE 11:02 → TELE-WESTW 21:40
PROVIDERS: ATTEND Student in an Organized Health Care Education/Training Program
DX: A41.9 Sepsis, unspecified organism (principal); I50.43 Acute on chronic combined systolic (congestive) and diastolic (congestive) heart failure; J18.9 Pneumonia, unspecified organism; J96.20 Acute and chronic respiratory failure, unspecified whether with hypoxia or hypercapnia; I47.20 Ventricular tachycardia, unspecified; E87.20 Acidosis, unspecified; J44.0 Chronic obstructive pulmonary disease with (acute) lower respiratory infection; R04.2 Hemoptysis; E87.6 Hypokalemia; I25.10 Atherosclerotic heart disease of native coronary artery without angina pectoris; E78.5 Hyperlipidemia, unspecified; I11.0 Hypertensive heart disease with heart failure; F17.210 Nicotine dependence, cigarettes, uncomplicated; R80.9 Proteinuria, unspecified; R82.4 Acetonuria; E11.51 Type 2 diabetes mellitus with diabetic peripheral angiopathy without gangrene; E66.9 Obesity, unspecified; D64.9 Anemia, unspecified; E03.9 Hypothyroidism, unspecified; Z68.32 Body mass index [BMI] 32.0-32.9, adult; I25.2 Old myocardial infarction; Z95.5 Presence of coronary angioplasty implant and graft; Z99.81 Dependence on supplemental oxygen; Z79.84 Long term (current) use of oral hypoglycemic drugs; Z83.3 Family history of diabetes mellitus
CPT/HCPCS: 36415; 71045; 71275; 80048; 80053; 81001; 82962; 83036; 83605; 83735; 83880; 84443; 84484; 85025; 86803; 87040; 87086; 87340; 93005; 94640; 96365; 96366; 96367; 96368; 96372; 99291; G0378; J1815; J2405; J2543